=== PATIENT | male | born 1945 | race Caucasian/White ===

== ENCOUNTER 2021-06-15 21:20 | Emergency (ER) | payer MEDICARE ==
[2021-06-15 22:30] LABS: ANION GAP 14.7 mmol/L (5-15)
[2021-06-15 22:49] LABS: CORONAVIRUS COVID-19 NAA POSITIVE (NEGATIVE)
[2021-06-15] MEDS ORDERED: Levofloxacin 500 MG Tab PO ONE (22:54)
== END 2021-06-15 23:30 | disposition home or self-care (01) ==
LOC: VM.ED 21:20
DX: U07.1 COVID-19 (principal); N39.0 Urinary tract infection, site not specified; D72.829 Elevated white blood cell count, unspecified
CPT/HCPCS: 0240U; 36415; 80048; 81001; 84484; 85025; 93005; 93010; 99284; 99285-25; A9270-GY